=== PATIENT | female | born 1930 | race Caucasian/White ===

== ENCOUNTER 2016-10-31 19:49 | Inpatient (IN) | payer OTHER ==
[~2016-10-31] VITALS: Ht 152.4 cm; Wt 64.6 kg
[~2016-10-31 19:49] MED LIST: AMBIEN5 MG PO; ATENOLOL50 MG PO; ESCITALOPRAM PO; HYDROXYZINE50 M1 PO; LEVOTHYROXINE0.1 M2 PO; LIDODERM51 TD; MECLIZINE HYDRO25 M1 PO; METP PO; NEU300 PO; PAX20 PO; PROAIR HFA0.09 MG/A1 IH; TENORMIN50 MG PO; VALIUM5 MG PO; VICODIN1 TA1 PO
[2016-10-31 21:41] LABS: BASOPHIL % 0.8 % (0-2); PLATELET COUNT 230 x10^3mcL (130-400)
[2016-10-31 21:45] LABS: RED CELL DISTRIBUTION WIDTH 15.2 % (11.5-14.5)
[2016-10-31 21:54] LABS: CALCIUM 9.5 mg/dL (8.5-10.1); CARBON DIOXIDE 28.2 mmol/L (21-32); CHLORIDE SERUM 106 mmol/L (98-107); CREATININE SERUM 0.8 mg/dL (0.6-1.0); GLUCOSE SERUM 100 mg/dL (74-106); POTASSIUM SERUM 4.3 mmol/L (3.5-5.1); SODIUM SERUM 141 mmol/L (136-145)
[2016-10-31 21:59] LABS: ALBUMIN 3.9 g/dL (3.4-5.0); ALKALINE PHOSPHATASE 92 U/L (46-116); ALT/SGPT 27 U/L (14-59); AST/SGOT 20 U/L (15-37); BILIRUBIN TOTAL 1.2 mg/dL (0.20-1.00); TOTAL PROTEIN, SERUM 7.5 g/dL (6.4-8.2)
[2016-10-31] MEDS ORDERED: ZOLOFT25 MG PO (23:41)
[2016-10-31] MEDS ORDERED: COUMADIN2 MG PO (23:41)
[2016-10-31] MEDS ORDERED: LEVOTHYROXINE0.1 M2 PO (23:41)
[2016-10-31] MEDS ORDERED: METOPROLOL TAR100 MG PO (23:41)
[2016-10-31] MEDS ORDERED: MECLIZINE HYDRO25 M1 PO (23:42)
[2016-10-31] MEDS ORDERED: TESSALON PERLE100 MG PO (23:42)
[2016-10-31] MEDS ORDERED: GABAPENTIN300 M4 PO (23:42)
[2016-10-31] MEDS ORDERED: AMBIEN5 MG PO (23:42)
[2016-10-31] MEDS ORDERED: FUROSEMIDE20 MG PO (23:43)
[2016-10-31 23:46] LABS: MAGNESIUM 2.2 mg/dL (1.8-2.4); PHOSPHOROUS 3.5 mg/dL (2.5-4.9)
[2016-10-31 23:54] LABS: CHOLESTEROL/HDL RATIO 2.3; FREE T4 1.62 ng/dL (0.76-1.46)
[2016-10-31 23:55] LABS: FREE THYROXINE INDEX 5.2 ug/dL (1.4-4.5); T4(THYROXINE) 15.4 ug/dL (4.7-13.3)
[2016-11-01] VITALS (7 sets, daily range): BP systolic 97–167; BP diastolic 67–101
[2016-11-01] MEDS ORDERED: COUMADIN2 MG PO (00:17)
[2016-11-01 00:30] LABS: T3 TOTAL 1.28 ng/mL
[2016-11-01 06:14] LABS: CALCIUM 8.7 mg/dL (8.5-10.1); CARBON DIOXIDE 26.1 mmol/L (21-32); CHLORIDE SERUM 110 mmol/L (98-107); CREATININE SERUM 0.8 mg/dL (0.6-1.0); GLUCOSE SERUM 91 mg/dL (74-106); POTASSIUM SERUM 4.4 mmol/L (3.5-5.1); SODIUM SERUM 143 mmol/L (136-145)
[2016-11-01 06:32] LABS: PLATELET COUNT 181 x10^3mcL (130-400)
[2016-11-01 07:03] LABS: RED CELL DISTRIBUTION WIDTH 14.6 % (11.5-14.5)
[2016-11-01 09:43] LABS: UA SPECIFIC GRAVITY >=1.030 (1.005-1.035); microscopic required? YES; urine erythrocyte 1+ (NEGATIVE)
[2016-11-02 05:38] VITALS: BP 138/75
[2016-11-02 06:44] LABS: CALCIUM 8.9 mg/dL (8.5-10.1); CHLORIDE SERUM 112 mmol/L (98-107); CREATININE SERUM 0.7 mg/dL (0.6-1.0); GLUCOSE SERUM 84 mg/dL (74-106); POTASSIUM SERUM 3.9 mmol/L (3.5-5.1); SODIUM SERUM 146 mmol/L (136-145)
[2016-11-02 07:07] LABS: BASOPHIL % 0.8 % (0-2); PLATELET COUNT 201 x10^3mcL (130-400)
[2016-11-02 08:06] LABS: RED CELL DISTRIBUTION WIDTH 14.9 % (11.5-14.5)
[2016-11-02 09:34] VITALS: BP 157/82
[2016-11-02 18:20] VITALS: BP 144/79; BP 163/84
[2016-11-02 21:46] VITALS: BP 149/92
[2016-11-03 05:17] VITALS: BP 134/84
[2016-11-03 06:09] LABS: CALCIUM 8.8 mg/dL (8.5-10.1); CARBON DIOXIDE 25.6 mmol/L (21-32); CHLORIDE SERUM 111 mmol/L (98-107); CREATININE SERUM 0.6 mg/dL (0.6-1.0); GLUCOSE SERUM 87 mg/dL (74-106); POTASSIUM SERUM 3.7 mmol/L (3.5-5.1); SODIUM SERUM 144 mmol/L (136-145)
[2016-11-03 06:39] LABS: BASOPHIL % 0.5 % (0-2); PLATELET COUNT 195 x10^3mcL (130-400)
[2016-11-03 06:40] LABS: RED CELL DISTRIBUTION WIDTH 14.9 % (11.5-14.5)
[2016-11-03 10:00] VITALS: BP 140/95
[2016-11-03 18:12] VITALS: BP 181/63
[2016-11-03 18:15] VITALS: BP 165/86
[2016-11-03 21:39] VITALS: BP 163/68
[2016-11-04 05:57] VITALS: BP 178/86
[2016-11-04 06:45] LABS: CALCIUM 8.8 mg/dL (8.5-10.1); CARBON DIOXIDE 25.6 mmol/L (21-32); CHLORIDE SERUM 108 mmol/L (98-107); CREATININE SERUM 0.6 mg/dL (0.6-1.0); GLUCOSE SERUM 84 mg/dL (74-106); POTASSIUM SERUM 3.4 mmol/L (3.5-5.1); SODIUM SERUM 144 mmol/L (136-145)
[2016-11-04 07:23] VITALS: BP 117/70
[2016-11-04 09:42] VITALS: BP 176/95
[2016-11-04 14:21] VITALS: BP 150/94
[2016-11-04 17:07] VITALS: BP 139/80
[2016-11-04] MEDS ORDERED: COUMADIN2 MG PO (17:28)
[2016-11-04] MEDS ORDERED: TYL325 PO (17:29)
[2016-11-04] MEDS ORDERED: ALEVE220 M1 PO (17:41)
[2016-11-04] MEDS ORDERED: IMO2 PO (18:00)
[2016-11-04] MEDS ORDERED: LAC PO (18:00)
[2016-11-04 18:03] VITALS: BP 139/80
== END 2016-11-04 20:50 | disposition home or self-care (01) | DRG 602 ==
LOC: ED 19:49 → DU 23:15 → MU 23:15 → DU 11-01 00:33 → MU 11-02 13:19
PROVIDERS: Emergency Medicine; Family Medicine; ADMIT Family Medicine
DX: L03.213 Periorbital cellulitis (principal); N17.0 Acute kidney failure with tubular necrosis; I48.2 Chronic atrial fibrillation; I10 Essential (primary) hypertension; M81.0 Age-related osteoporosis without current pathological fracture; E05.80 Other thyrotoxicosis without thyrotoxic crisis or storm; T38.1X5A Adverse effect of thyroid hormones and substitutes, initial encounter; E03.9 Hypothyroidism, unspecified; F32.9 Major depressive disorder, single episode, unspecified; Z68.27 Body mass index [BMI] 27.0-27.9, adult; Z87.891 Personal history of nicotine dependence; Z79.01 Long term (current) use of anticoagulants; Y92.009 Unspecified place in unspecified non-institutional (private) residence as the place of occurrence of the external cause
CPT/HCPCS: 83880; 84439; 87046; 87046-59; J0295; J1885; J2270; J2405; J3490; J7030; Q0092; Q9967

== ENCOUNTER 2018-08-24 22:51 | Emergency (ER) | payer OTHER ==
[~2018-08-24] VITALS: Ht 149.9 cm; Wt 60.8 kg
[~2018-08-24 22:51] MED LIST changes: +ALEVE220 M1 PO; +COUMADIN2 MG PO; +FUROSEMIDE20 MG PO; +GABAPENTIN300 M4 PO; +IMO2 PO; +LAC PO; +METOPROLOL TAR100 MG PO; +TESSALON PERLE100 MG PO; +TYL325 PO; +ZOLOFT25 MG PO
[2018-08-24 23:15] VITALS: Ht 149.9 cm; Wt 60.8 kg
[2018-08-25 00:05] LABS: BASOPHIL % 0.5 % (0-2); PLATELET COUNT 269 x10^3mcL (130-400)
[2018-08-25 00:07] LABS: RED CELL DISTRIBUTION WIDTH 15.1 % (11.5-14.5)
[2018-08-25 00:12] LABS: CALCIUM 9.6 mg/dL (8.5-10.1); CARBON DIOXIDE 28.1 mmol/L (21-32); CHLORIDE SERUM 105 mmol/L (98-107); CREATININE SERUM 0.7 mg/dL (0.6-1.0); GLUCOSE SERUM 123 mg/dL (74-106); POTASSIUM SERUM 3.9 mmol/L (3.5-5.1); SODIUM SERUM 143 mmol/L (136-145)
[2018-08-25 00:18] LABS: ALBUMIN 4.2 g/dL (3.4-5.0); ALKALINE PHOSPHATASE 79 U/L (46-116); ALT/SGPT 33 U/L (14-59); AST/SGOT 16 U/L (15-37); BILIRUBIN TOTAL 0.9 mg/dL (0.20-1.00); TOTAL PROTEIN, SERUM 7.1 g/dL (6.4-8.2)
[2018-08-25 01:57] VITALS: BP 160/92
== END 2018-08-25 01:57 | disposition home or self-care (01) ==
LOC: ED 22:51
DX: R10.13 Epigastric pain (principal); R19.7 Diarrhea, unspecified; I10 Essential (primary) hypertension; M81.0 Age-related osteoporosis without current pathological fracture; Z90.710 Acquired absence of both cervix and uterus; Z88.6 Allergy status to analgesic agent; Z91.018 Allergy to other foods
CPT/HCPCS: 36415

== ENCOUNTER 2019-01-10 20:14 | Emergency (ER) | payer OTHER ==
[2019-01-10 21:33] LABS: BASOPHIL % 0.7 % (0-2); PLATELET COUNT 304 x10^3mcL (130-400)
[2019-01-10 21:34] LABS: RED CELL DISTRIBUTION WIDTH 15.2 % (11.5-14.5)
[2019-01-10 21:43] LABS: CALCIUM 9.4 mg/dL (8.5-10.1); CARBON DIOXIDE 28.5 mmol/L (21-32); CHLORIDE SERUM 105 mmol/L (98-107); CREATININE SERUM 0.8 mg/dL (0.6-1.0); GLUCOSE SERUM 127 mg/dL (74-106); SODIUM SERUM 142 mmol/L (136-145)
[2019-01-10 21:47] LABS: ALBUMIN 4.3 g/dL (3.4-5.0); ALKALINE PHOSPHATASE 77 U/L (46-116); ALT/SGPT 15 U/L (14-59); AST/SGOT 14 U/L (15-37); BILIRUBIN TOTAL 1.6 mg/dL (0.20-1.00); LIPASE 141 IU/L (73-393); TOTAL PROTEIN, SERUM 7.4 g/dL (6.4-8.2)
[2019-01-10 23:24] VITALS: BP 152/87
== END 2019-01-10 23:24 | disposition home or self-care (01) ==
LOC: ED 20:14
PROVIDERS: Emergency Medicine
DX: R10.815 Periumbilic abdominal tenderness (principal); I10 Essential (primary) hypertension; Z88.6 Allergy status to analgesic agent; Z91.018 Allergy to other foods
CPT/HCPCS: 36415; J0500